=== PATIENT | female | born 1975 | race Caucasian/White ===

== ENCOUNTER → 2017-11-21 | Outpatient (CLI) | payer OTHER ==
[~2017-11-21] MED LIST: METF-411 PO
--- NOTE | 2017-11-21 11:13 | RADIOLOGY IMAGING REPORT ---
FACILITY: [facility] [place] PATIENT NAME: Nicolette Carranza : 1975 MR: [id number] V: [id number] EXAM DATE: ORDERING PHYSICIAN: MEHRAN QUICK TECHNOLOGIST: Location: [facility] Patient: Nicolette Carranza : 1975 Visit/Account:[id number] Date of Sevice: 11/21/2017 EXAMINATION: Pelvis and right hip radiographs HISTORY: Right hip pain COMPARISON: None. FINDINGS: Frontal pelvis and probably lateral right hip radiographs obtained. Normal hip and sacroiliac joints. No fracture or osseous destruction. Normal soft tissues. IMPRESSION: Normal pelvis and right hip radiographs. Report Dictated By: Pb Bourgeois MD at 11/21/2017 11:08 AM Report E-Signed By: Pb Bourgeois MD at 11/21/2017 11:10 AM WSN:[id number]
== END ==
LOC: RAD 08:44
PROVIDERS: ATTEND Nurse Practitioner Family
DX: M25.551 Pain in right hip (principal)

== ENCOUNTER → 2018-11-13 | Outpatient (CLI) | payer OTHER ==
[~2018-11-13] MED LIST changes: +LISI-351 PO; -METF-411 PO; +METF-450 PO; +ROSU10TA FT
== END ==
LOC: RESP 08:53
PROVIDERS: ATTEND Surgery
DX: Z02.9 Encounter for administrative examinations, unspecified (principal)

== ENCOUNTER → 2018-11-14 | Outpatient (CLI) | payer OTHER ==
--- NOTE | 2018-11-14 10:52 | EKG ---
FACILITY: [facility] PATIENT NAME: WILBUR COLIN : [id number] MR: [id number] V: [id number] EXAM DATE: ORDERING PHYSICIAN: RACHELLE RAMIREZ TECHNOLOGIST: THOMAS Test Reason : PRE-OP Blood Pressure : / mmHG Vent. Rate : 052 BPM Atrial Rate : 052 BPM P-R Int : 152 ms QRS Dur : 096 ms QT Int : 452 ms P-R-T Axes : 005 013 -02 degrees QTc Int : 420 ms Sinus bradycardia with sinus arrhythmia Low voltage QRS Inferior infarct , age undetermined Abnormal ECG No previous ECGs available Referred By: JAMES Confirmed By:
--- NOTE | 2018-11-14 17:16 | RADIOLOGY IMAGING REPORT ---
FACILITY: [facility] - [place] PATIENT NAME: Nicolette Carranza : 1975 MR: [id number] V: [id number] EXAM DATE: ORDERING PHYSICIAN: MEHRAN QUICK TECHNOLOGIST: Location: [facility] [place] Patient: Nicolette Carranza : 1975 Visit/Account:[id number] Date of Sevice: 11/14/2018 Transabdominal. pelvic ultrasound INDICATION: Abnormal bleeding. COMPARISON: None Available FINDINGS: Uterus measures 9.5 x 5.6 x 6.2 cm. The uterus is anteverted and homogeneous. No focal abnormality. Double wall endometrial stripe measures 14.1 mm. Homogeneous. No fluid or focal abnormality. There is no free fluid in the cul-de-sac. Urinary bladder is empty. Pelvic vessels appear unremarkable on this examination. Right ovary surgically removed. Left ovary measures 2.9 x 3.1 x 2.6 cm and shows normal blood flow and contains several small follicl es. No adnexal masses. IMPRESSION: 1. Unremarkable transabdominal pelvic ultrasound. Endometrium appears normal. Status post right ooph orectomy. Transvaginal pelvic ultrasound INDICATION: Abnormal bleeding. COMPARISON: None Available FINDINGS: Uterus measures 7.7 x 5.0 x 7.2 cm. The uterus is anteverted and homogeneous. No focal abnormality. Double wall endometrial stripe measures 11 mm and homogeneous. No fluid or focal abnormality. There is no free fluid in the cul-de-sac. Urinary bladder is empty. Pelvic vessels appear unremarkable on this examination. Right ovary surgically removed Left ovary measures 2.3 x 2.0 x 2.0 cm and shows normal blood flow and contains several small follicl es. No adnexal masses. IMPRESSION: 1. Unremarkable transvaginal exam. Endometrium appears normal. Status post right oophorectomy. Report Dictated By: Leonard Barron at 11/14/2018 5:04 PM Report E-Signed By: Leonard Barron at 11/14/2018 5:11 PM WSN:[id number]
--- NOTE | 2018-11-14 17:17 | RADIOLOGY IMAGING REPORT ---
FACILITY: [facility] [place] PATIENT NAME: Nicolette Carranza : 1975 MR: [id number] V: [id number] EXAM DATE: ORDERING PHYSICIAN: MEHRAN QUICK TECHNOLOGIST: Location: [facility] - [place] Patient: Nicolette Carranza : 1975 Visit/Account:[id number] Date of Sevice: 11/14/2018 Transabdominal. pelvic ultrasound INDICATION: Abnormal bleeding. COMPARISON: None Available FINDINGS: Uterus measures 9.5 x 5.6 x 6.2 cm. The uterus is anteverted and homogeneous. No focal abnormality. Double wall endometrial stripe measures 14.1 mm. Homogeneous. No fluid or focal abnormality. There is no free fluid in the cul-de-sac. Urinary bladder is empty. Pelvic vessels appear unremarkable on this examination. Right ovary surgically removed. Left ovary measures 2.9 x 3.1 x 2.6 cm and shows normal blood flow and contains several small follicl es. No adnexal masses. IMPRESSION: 1. Unremarkable transabdominal pelvic ultrasound. Endometrium appears normal. Status post right ooph orectomy. Transvaginal pelvic ultrasound INDICATION: Abnormal bleeding. COMPARISON: None Available FINDINGS: Uterus measures 7.7 x 5.0 x 7.2 cm. The uterus is anteverted and homogeneous. No focal abnormality. Double wall endometrial stripe measures 11 mm and homogeneous. No fluid or focal abnormality. There is no free fluid in the cul-de-sac. Urinary bladder is empty. Pelvic vessels appear unremarkable on this examination. Right ovary surgically removed Left ovary measures 2.3 x 2.0 x 2.0 cm and shows normal blood flow and contains several small follicl es. No adnexal masses. IMPRESSION: 1. Unremarkable transvaginal exam. Endometrium appears normal. Status post right oophorectomy. Report Dictated By: Leonard Barron at 11/14/2018 5:04 PM Report E-Signed By: Leonard Barron at 11/14/2018 5:11 PM WSN:[id number]
== END ==
LOC: US 00:47
PROVIDERS: ATTEND Nurse Practitioner Family
DX: R30.0 Dysuria (principal); R10.2 Pelvic and perineal pain; N93.9 Abnormal uterine and vaginal bleeding, unspecified
CPT/HCPCS: 76830; 76856

== ENCOUNTER 2018-12-23 01:13 | Day surgery (SDC) | payer OTHER ==
[~2018-12-23] VITALS: Ht 160 cm; Wt 108.4 kg
[~2018-12-23 01:13] MED LIST changes: -ROSU10TA FT; +ROSU10TA PO
[2018-12-23] MEDS ORDERED: LIDOCAINE/SOD BICARB 8.4% SYR ID ONE (06:30)
[2018-12-23] MEDS ORDERED: NORMOSOL R SOLN(*) 1000 ML BAG 1,000 ML IV PRN (06:30)
[2018-12-23] MEDS ORDERED: cefOXitin/DEX(*) 2GM/50ML PREM 50 ML IVPB ONE (06:30)
[2018-12-23] MEDS ORDERED: fentaNYL CITR 100 MCG/2 ML AMP ONE ×2 (06:52→09:04)
[2018-12-23 06:53] VITALS: BP 110/71
[2018-12-23] MEDS ORDERED: PROPOFOL EMUL(*) 10MG/ML 20 ML 20 ML ONE (06:53)
[2018-12-23] MEDS ORDERED: LIDOCAINE 2% IV 100 MG/5ML SYR ONE (06:53)
[2018-12-23] MEDS ORDERED: FAMOTIDINE 20 MG TAB PO ONE (06:55)
[2018-12-23] MEDS ORDERED: BUPIVACAINE 0.5% INJ 50ML VIAL INFIL ONE (07:06)
[2018-12-23] MEDS ORDERED: BUPIVACAINE/EPI 0.5% 50ML VIAL INFIL ONE (07:06)
[2018-12-23] MEDS ORDERED: LIDOCAINE 2% 200MG/10ML UROJET ONE ×2 (07:06→07:08)
[2018-12-23] MEDS ORDERED: DEXAMETHASONE SOD 4 MG/ML VIAL ONE (07:19)
[2018-12-23] MEDS ORDERED: ONDANSETRON 4 MG/2 ML VIAL ONE (07:19)
[2018-12-23] MEDS: MIDAZOLAM 2 MG/2 ML VIAL IVP PRN ×2 (07:23→07:26)
[2018-12-23] MEDS ORDERED: HYDR-654 PO (08:44)
[2018-12-23] MEDS ORDERED: LIDO15SO2 TOP (08:46)
--- NOTE | 2018-12-23 08:48 | Short(Outpt) Discharge Summary ---
Discharge Summary Reason for Hosp/Final Diag: (1) BRBPR (bright red blood per rectum) Hospital Course & Plan: pt presented for colonoscopy and lateral internal sphincterotomy. she tolerated the procedures well and will be discharged home when criteria met. Departure Discharge to: Home Discharge Instructions Home Meds Active Scripts Lidocaine HCl VISCOUS 2% (Lidocaine Viscous) 2 % Solution, 1 BETH TOP Q4H PRN for PAIN, #1 TUBE Prov:RACHELLE LEE 12/23/18 Hydrocodone Bit/Acetaminophen (NORCO 7.5-325 TABLET) 1 Each Tablet, 1 EACH PO Q4H, #14 TAB Prov:RACHELLE LEE 12/23/18 Reported Medications Rosuvastatin Calcium (CRESTOR) 10 Mg Tab, 10 MG PO QDAY, TAB 11/13/18 Lisinopril/Hydrochlorothiazide (LISINOPRIL-HCTZ 10-12.5 MG TAB) 1 Each Tablet, 1 EACH PO 11/13/18 Metformin Hcl (METFORMIN HCL) 500 Mg Tablet, 1 TAB PO BID, TAB 09/13/17 Diet: Regular Activity: As Tolerated Special Instructions: sitz baths for 15 minutes 3x/day and prn. keep stool soft - fiber, stool softener, and prn laxative. f/u dr[facility] 2 wks ([phone]). RACHELLE LEE Dec 23, 2018 08:48
--- NOTE | 2018-12-23 08:54 | Post Operative Progress Note ---
Post Operative Progress Note Date: Dec 23, 2018 Time: 08:44 Surgeon: dr. rosio lee #[id number] Feature Writer: none Anesthesia: gen, local Pre-Op Diagnosis: brbpr Post-Op Diagnosis: same Findings: post fissure Procedure(s): colonoscopy, left lat int sphincterotomy Specimen Removed:(May be N/A): none Complications: none Estimated Blood Loss: minimal Date OP Note Dictated: Dec 23, 2018 Time OP Note Dictated: 08:45 RACHELLE LEE Dec 23, 2018 08:54
[2018-12-23 09:43] VITALS: BP 85/48
[2018-12-23 10:00] VITALS: BP 94/57
[2018-12-23 10:21] VITALS: BP 100/57
[2018-12-23 10:25] VITALS: BP 125/81
[2018-12-23 10:27] VITALS: BP 121/74
--- NOTE | 2018-12-23 10:29 | OPERATIVE REPORT 1 ---
EVENT DATE: December 23, 2018 SURGEON: Thom Jimenez MD ANESTHESIOLOGIST: Angel Barnhart MD ANESTHESIA: General and local. RELIEF DOCKING MASTER: None. PREOPERATIVE DIAGNOSIS Bright red blood per rectum. POSTOPERATIVE DIAGNOSIS Bright red blood per rectum. PROCEDURE PERFORMED 1. Colonoscopy. 2. Left lateral internal sphincterotomy. 3. Exam under anesthesia. FLUIDS IV crystalloid. ESTIMATED BLOOD LOSS Minimal. SPECIMENS None. COMPLICATIONS None. 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 She has occasional pain and bright red blood per rectum. Risks and benefits of the procedure were explained and consent was signed. DESCRIPTION OF PROCEDURE The patient was taken to the operating room and placed in the supine position. General anesthesia was administered per the anesthesia team. Patient was placed in the frogleg position. Digital rectal and perianal exam were performed. The perianal exam showed anterior skin tag. Digital rectal exam was within normal limits. Colonoscope was advanced through the rectum and to the cecum under direct visualization. The appendiceal orifice and ileocecal valve were identified. The colonoscope was slowly withdrawn, examining the mucosa along the entire length of the colon. Colon prep was adequate to identify polyps greater than 6 mm. There were no polyps, no masses, no colitis. No specimens were taken. The colonoscope was withdrawn. Patient was prepped and draped in normal sterile fashion. Buttocks were taped for exposure prior to prepping and draping. Exam under anesthesia was performed. There was a posterior anal fissure and an anterior skin tag. There was a small internal hemorrhoid but this was at the site where the sphincterotomy was to be performed and, therefore, this was not treated. Small incision was made over the internal sphincter muscle in the left lateral incision. Metzenbaum scissors were used to free the sphincter muscle from the mucosa as well as enter the intrasphincteric groove. The anterior sphincter was then divided up to the dentate line. During blunt dissection with the tips of the scissors, the scissors did pass through an anal gland. However, the mucosa itself was not torn. Skin incision was closed with 3-0 Chromic stitch in locking fashion, taking care to close just the mucosa and not to reapproximate the internal sphincter muscle. Local analgesia was injected. Lidocaine roll was placed. Appropriate dressings were applied. The patient tolerated the procedure well. There were no complications. [facility]
== END 2018-12-23 09:43 | disposition home or self-care (01) ==
LOC: OR 01:13
PROVIDERS: ATTEND Surgery
DX: K62.5 Hemorrhage of anus and rectum (principal); E11.9 Type 2 diabetes mellitus without complications
CPT/HCPCS: 00811; 36416; 46080; 81025; 82948; J0694; J1100; J2001; J2250; J2405; J2704; J3010; J3490